=== PATIENT | female | born 1995 | race Caucasian/White ===

== ENCOUNTER → 2018-07-23 16:16 | Outpatient (CLI) | payer MEDICAID, SELFPAY ==
[2018-07-23 18:00] LABS: hCG Titer Quant., Serum 9426 mIU/mL (<9 non-preg)
== END ==
PROVIDERS: Referring Provider Nurse Practitioner Adult Health; Visit Provider Nurse Practitioner Adult Health
DX: N92.6 Irregular menstruation, unspecified (principal)
CPT/HCPCS: 36415; 84702